=== PATIENT | male | born 1970 | race Caucasian/White ===

== ENCOUNTER 2016-05-14 16:55 | Observation (INO) | payer SELFPAY ==
[~2016-05-14] VITALS: Ht 180.3 cm; Wt 125.0 kg
[~2016-05-14 16:55] MED LIST: ATOR10 PO; ECASA PO; LISI5 PO
[2016-05-14 16:56] VITALS: BP 158/96; PULSE 78; RESP 20; TEMP 97.8; O2SAT 96
[2016-05-14] MEDS ORDERED: SODIUM CHLORIDE 0.9% FLUSH 5 ML FLUSH IVF PRN ×2 (17:45→19:30)
--- NOTE | 2016-05-14 17:50 | PD ---
HPI Chief Complaint: Chest Pain Time Seen by Provider: 17:16 Travel History International Travel<30 days: No Contact w/Intl Traveler<30days: No Traveled to known affect area: No History of Present Illness HPI 45yo M with PMH of HTN, HLD, CVA, paroxysmal afib (has a recorder since CVA 2 years ago and only showed one episode of afib) presents to the ED for chest pain since this morning. States it is pressure like and radiates to bilateral axilla. Associated with mild sob. Denies any fever, cough, n/v, abdominal pain , focal weakness or numbness. Pt took his aspirin 325mg PO today. Pt had seen Dr. Fu a while ago but has not follow up in more than a year. Has never had chest pain or cardiac work up. Former cig smoker. PFSH Past Medical History Atrial Fibrillation: Yes Cardiovascular Problems: Yes High Cholesterol: Yes Chest Pain: Yes Cerebrovascular Accident: Yes (2014) Diminished Hearing: No Hypertension: Yes Past Surgical History Abdominal Surgery: Yes (HERNIA ) Body Medical Devices: IMPLANTED HEART MONITOR Genitourinary Surgery: Yes (VASECTOMY ) Gynecologic Surgery: Yes Family History Family Myocardial Infarction: Yes Social History Alcohol Use: No Tobacco Use: No Substance Use: No Allergies-Medications (Allergen,Severity, Reaction): Coded Allergies: Penicillin (Unverified Allergy, Unknown, 05/14/16) Reported Meds & Prescriptions Reported Meds & Active Scripts Active Prinivil 5 mg (Lisinopril) 5 Mg Tab 2.5 Mg PO DAILY Lipitor 10 mg tab (Atorvastatin) 10 Mg Tab 10 Mg PO DAILY Aspirin EC (Aspirin) 325 Mg Tabec 325 Mg PO DAILY Review of Systems Except as stated in HPI: all other systems reviewed are Neg Physical Exam Narrative GENERAL: 45yo M not in distress. SKIN: Warm and dry. HEAD: Atraumatic. Normocephalic. EYES: Pupils equal and round. EOMI> No scleral icterus. No injection or drainage. ENT: No nasal bleeding or discharge. Mucous membranes pink and moist. NECK: Trachea midline. No JVD. CARDIOVASCULAR: Regular rate and rhythm. No murmur appreciated. RESPIRATORY: No accessory muscle use. Clear to auscultation. Breath sounds equal bilaterally. GASTROINTESTINAL: Abdomen soft, non-tender, nondistended. No rebound tenderness or guarding. MUSCULOSKELETAL: No obvious deformities. No clubbing. No cyanosis. No edema. NEUROLOGICAL: Awake and alert. No obvious cranial nerve deficits. Motor grossly within normal limits. Normal speech. PSYCHIATRIC: Appropriate mood and affect; insight and judgment normal. Data Data Last Documented VS Vital Signs Date Time Temp Pulse Resp B/P Pulse Ox O2 Delivery O2 Flow Rate FiO2 05/14/16 18:54 95 124/73 05/14/16 18:01 20 95 Room Air 05/14/16 16:56 97.8 Orders Electrocardiogram (05/14/16 ) Basic Metabolic Panel (Bmp) (05/14/16 17:39) Ckmb (Isoenzyme) Profile (05/14/16 17:39) Complete Blood Count With Diff (05/14/16 17:39) Magnesium (Mg) (05/14/16 17:39) Prothrombin Time / Inr (Pt) (05/14/16 17:39) Act Partial Throm Time (Ptt) (05/14/16 17:39) Troponin I (05/14/16 17:39) Chest, Single Ap (05/14/16 17:39) Ecg Monitoring (05/14/16 17:39) Bilateral Bp Monitoring (05/14/16 17:39) Iv Access Insert/Monitor (05/14/16 17:39) Oximetry (05/14/16 17:39) Oxygen Administration (05/14/16 17:39) Sodium Chloride 0.9% Flush (Ns Flush) (05/14/16 17:45) Nitroglycerin Sl (Nitrostat Sl) (05/14/16 17:45) CKMB (05/14/16 17:45) CKMB% (05/14/16 17:45) Admit Order (Ed Use Only) (05/14/16 19:19) Labs Laboratory Tests Test 05/14/16 17:45 White Blood Count 8.0 TH/MM3 Red Blood Count 4.57 MIL/MM3 Hemoglobin 13.8 GM/DL Hematocrit 39.8 % Mean Corpuscular Volume 87.0 FL Mean Corpuscular Hemoglobin 30.2 PG Mean Corpuscular Hemoglobin 34.7 % Concent Red Cell Distribution Width 13.2 % Platelet Count 236 TH/MM3 Mean Platelet Volume 7.4 FL Neutrophils (%) (Auto) 55.8 % Lymphocytes (%) (Auto) 33.9 % Monocytes (%) (Auto) 7.1 % Eosinophils (%) (Auto) 2.1 % Basophils (%) (Auto) 1.1 % Neutrophils # (Auto) 4.5 TH/MM3 Lymphocytes # (Auto) 2.7 TH/MM3 Monocytes # (Auto) 0.6 TH/MM3 Eosinophils # (Auto) 0.2 TH/MM3 Basophils # (Auto) 0.1 TH/MM3 CBC Comment DIFF FINAL Differential Comment Prothrombin Time 11.0 SEC Prothromb Time International 1.0 RATIO Ratio Activated Partial 23.8 SEC Thromboplast Time Sodium Level 140 MEQ/L Potassium Level 3.8 MEQ/L Chloride Level 105 MEQ/L Carbon Dioxide Level 26.0 MEQ/L Anion Gap 9 MEQ/L Blood Urea Nitrogen 15 MG/DL Creatinine 1.21 MG/DL Estimat Glomerular Filtration 65 ML/MIN Rate Random Glucose 96 MG/DL Calcium Level 9.6 MG/DL Magnesium Level 2.0 MG/DL Total Creatine Kinase 477 U/L Creatine Kinase MB 1.4 NG/ML Creatine Kinase MB % 0.3 % Troponin I LESS THAN 0.02 NG/ML MDM Medical Decision Making Medical Screen Exam Complete: Yes Emergency Medical Condition: Yes Interpretation(s) EKG: NSR 71bpm. LAD. TWI III. No ST segment elevation or depression. Differential Diagnosis ACS vs. musculoskeletal pain vs. GERD Narrative Course 45yo M with multiple cardiac risk factors including HTN, HLD, obesity, former smoker here with chest pain that is pressure like since this morning. Atypical presentation but will do cardiac work up given pt's risk factors. Labs reviewed, no leukocytosis. Troponin negative. CXR showed minimal basal atelectasis or scarring. No acute findings. Pt given aspirin and sublingual nitro with some improvement of chest pain. Will admit pt for chest pain center for serial EKG and cardiac enzymes. Diagnosis Primary Impression: Chest pain Qualified Code: R07.9 - Chest pain, unspecified type Admitting Information Admitting Physician Requests: Elodia Ramon DO May 14, 2016 17:50
[2016-05-14] MEDS: NITROGLYCERIN 0.4 MG SL 25 TABS/BTL SL SCH ×3 (17:53→18:54)
[2016-05-14 18:01] VITALS: BP 125/85; PULSE 97; RESP 20; O2SAT 95
[2016-05-14 18:25] LABS: AUTOMATED NEUTROPHIL # 4.5 TH/MM3 (1.8-7.7); BASOPHIL # 0.1 TH/MM3 (0-0.2); BASOPHIL % 1.1 % (0.0-2.0); EOSINOPHIL # 0.2 TH/MM3 (0-0.4); EOSINOPHIL % 2.1 % (0.0-4.0); HEMATOCRIT 39.8 % (39.0-51.0); HEMO FLAGS DIFF FINAL; LYMPH % 33.9 % (9.0-44.0); LYMPHOCYTE # 2.7 TH/MM3 (1.0-4.8); MEAN CORPUSCULAR HEMOGLOBIN 30.2 PG (27.0-34.0); MEAN CORPUSCULAR HGB CONC 34.7 % (32.0-36.0); MONO % 7.1 % (0.0-8.0); NEUT % 55.8 % (16.0-70.0); PLATELET COUNT 236 TH/MM3 (150-450); RED BLOOD COUNT 4.57 MIL/MM3 (4.50-5.90); RED CELL DISTRIBUTION WIDTH 13.2 % (11.6-17.2)
[2016-05-14 18:39] LABS: APTT (PATIENT) 23.8 SEC (24.3-30.1)
[2016-05-14 18:42] LABS: ANION GAP 9 MEQ/L (5-15); BLOOD UREA NITROGEN 15 MG/DL (7-18); CHLORIDE 105 MEQ/L (98-107); GLOMERULAR FILTRATION RATE 65 ML/MIN (>89); POTASSIUM 3.8 MEQ/L (3.5-5.1); SODIUM (NA) 140 MEQ/L (136-145)
[2016-05-14 18:43] LABS: CREATINE KINASE 477 U/L (39-308)
[2016-05-14 18:54] VITALS: BP 124/73; PULSE 95
[2016-05-14 18:55] LABS: CKMB 1.4 NG/ML (0.5-3.6)
--- NOTE | 2016-05-14 19:18 | RADRPT ---
EXAM DATE/TIME: 05/14/2016 17:39 [facility] COMPARISON: CHEST SINGLE AP, September 15, 2014, 11:26. INDICATIONS : Chest pain. Short of breath. MEDICAL HISTORY : None. SURGICAL HISTORY : None. ENCOUNTER: Initial ACUITY: 1 day PAIN SCORE: 6/10 LOCATION: Bilateral chest FINDINGS: A single view of the chest demonstrates the lungs to be symmetrically aerated without evidence of mas s, infiltrate or effusion. Minimal basal atelectasis or scarring. Recorder projects over lower left c hest. CONCLUSION: 1. Minimal basal atelectasis or scarring. No acute findings compared with 2014. José Antonio Longoria MD on May 14, 2016 at 19:15 Board Certified Radiologist. This report was verified electronically.
[2016-05-14 20:42] VITALS: BP 128/78; PULSE 62; RESP 20; O2SAT 96
[2016-05-14 21:04] LABS: CREATINE KINASE 425 U/L (39-308)
[2016-05-14 21:16] LABS: CKMB 0.9 NG/ML (0.5-3.6)
[2016-05-14] MEDS ORDERED: ATOR40TA16 PO (21:34)
[2016-05-14] MEDS ORDERED: LISI30TA4 PO (21:34)
[2016-05-14] MEDS ORDERED: ASPI325T PO (21:34)
[2016-05-14] MEDS ORDERED: NAPR250T PO (21:34)
[2016-05-14 22:34] VITALS: BP 123/73; PULSE 72; RESP 19; TEMP 98.2; O2SAT 96
[2016-05-14] MEDS: SODIUM CHLORIDE 0.9% FLUSH 5 ML FLUSH IVF SCH (22:55)
[2016-05-15] VITALS: PULSE 65
[2016-05-15 00:59] LABS: CREATINE KINASE 370 U/L (39-308)
[2016-05-15 01:11] LABS: CKMB 0.6 NG/ML (0.5-3.6)
[2016-05-15 04:00] VITALS: PULSE 65
[2016-05-15 04:14] VITALS: BP 118/81; PULSE 68; RESP 20; TEMP 98.4; O2SAT 97
[2016-05-15 07:13] VITALS: PULSE 63
[2016-05-15] MEDS: SODIUM CHLORIDE 0.9% FLUSH 5 ML FLUSH IVF SCH (08:20)
[2016-05-15 08:43] VITALS: BP 154/92; PULSE 67; RESP 20; O2SAT 97
[2016-05-15 09:28] VITALS: O2SAT 97
[2016-05-15] MEDS ORDERED: NITROGLYCERIN 0.4 MG SL 25 TABS/BTL SL PRN (09:30)
[2016-05-15] MEDS ORDERED: LISINOPRIL 20 MG TAB PO SCH (09:30)
[2016-05-15] MEDS ORDERED: ASPIRIN 325 MG TAB PO SCH (09:30)
[2016-05-15] MEDS ORDERED: ACETAMINOPHEN 500 MG CPLT PO PRN (09:30)
[2016-05-15] MEDS ORDERED: ONDANSETRON HCL 4 MG/2 ML VIAL IV PRN (09:30)
--- NOTE | 2016-05-15 11:49 | HHI.DCPOC ---
Discharge Care Plan Diagnosis: (1) Atypical chest pain Goals to Promote Your Health * To prevent worsening of your condition and complications * To maintain your health at the optimal level Directions to Meet Your Goals Take your medications as prescribed Follow your dietary instruction Follow activity as directed Keep your appointments as scheduled Take your immunizations and boosters as scheduled If your symptoms worsen call your PCP, if no PCP go to Urgent Care Center or Emergency Room Smoking is Dangerous to Your Health. Avoid second hand smoke Call the 24-hour hour crisis hotline for domestic abuse at Melonie Main May 15, 2016 11:49
--- NOTE | 2016-05-15 11:50 | TR ---
Date Performed: 05/15/2016 Time Performed: 10:15:30 DOCTOR: Bobby Giordano DRUG LIST: CLINICAL HISTORY: CHEST PAIN REASON FOR TEST: Chest pain REASON FOR ENDING: OBSERVATION: CONCLUSION: Rafy protocol completed. Stopped sec to leg fatigue and reaching target heart rate. Maximum ZE=541 Target HR Achieved=86.0% Maximum JH=142/92 Total Exercise Time=8:00. No reprod chest discomfort. No ectopy. No st t seg changes to sugg ischemia. Normal bp response. Good exercise tolera nce. Recovery quick and unremarkable. COMMENTS: Conclusion: Normal treadmill exercise. No evidence of ischemia.
[2016-05-15] MEDS ORDERED: HYDR12.57 PO (12:11)
--- NOTE | 2016-05-15 14:40 | EKG ---
Date Performed: 05/14/2016 Time Performed: 23:57:47 PTAGE: 45 years EKG: Sinus rhythm NORMAL ECG PREVIOUS TRACING : 05/14/2016 20.30 Since previous tracing, no significant change noted DOCTOR: Bobby Giordano Interpretating Date/Time 05/15/2016 14:39:26
--- NOTE | 2016-05-15 14:43 | EKG ---
Date Performed: 05/14/2016 Time Performed: 20:30:34 PTAGE: 45 years EKG: Sinus rhythm MODERATE VOLTAGE CRITERIA FOR LVH, CONSIDER NORMAL VARIANT BORDERLINE ECG PREVIOUS TRACING : 05/14/2016 17.22 Since previous tracing, no significant change noted DOCTOR: Bobby Giordano Interpretating Date/Time 05/15/2016 14:41:44
--- NOTE | 2016-05-15 14:43 | EKG ---
Date Performed: 05/14/2016 Time Performed: 17:22:08 PTAGE: 45 years EKG: Sinus rhythm POSSIBLE LEFT VENTRICULAR HYPERTROPHY ABNORMAL ECG PREVIOUS TRACING : 09/15/2014 11.09 Since previous tracing, no significant change noted DOCTOR: Bobby Giordano Interpretating Date/Time 05/15/2016 14:41:58
--- NOTE | 2016-05-15 17:05 | HHI.HP ---
HPI Primary Care Physician Lowell Pendleton MD Chief Complaint Chest pressure History of Present Illness 45-year-old male with known hypertension, hyperlipidemia, CVA presents to the emergency room for further evaluation of chest pressure. Onset yesterday morning upon awakening. Characterized as chest pressure, severity 1/10, radiated to his back. Duration constant. No associated symptoms. Chest pressure was not made worse with a deep breath, position, or movement. No nausea, vomiting, or diaphoresis. No known precipitating factors or relieving factors. Review of Systems General: Upper respiratory infection x3 days sat, mon, and monday of this week. Symptoms have improved. No fatigue,weakness, fever, chills, recent travel, or change in appetite HEENT: No MADRID, no vision changes, no nasal congestion or drainage, no dysphasia CV: No current chest pressure. Chest pressure resolved at 2200 last night . No CP, palpitations, intermittent leg pain, dizziness RESP: No SOB, cough, wheeze, hemoptysis GI: No nausea or vomiting, bowel changes, diarrhea, constipation, pain, distention, melena, blood in the stool. No change in appetite, no unintentional weight gain or weight loss : No dysuria, urgency, frequency, hematuria, or history of kidney stones EXT: No lower leg edema, no parathesias MS: No discomfort or change in ROM NEURO: No change in memory, dizziness, difficulty with balance, LOC, motor/ sensory deficits PSYCH: No anxiety, depression. Report situational stress from work and daily life stressors. SKIN: No rashes, no concerning lesions Past Family Social History Allergies: Coded Allergies: Penicillin (Unverified Allergy, Unknown, 05/14/16) Past Medical History Hypertension, hyperlipidemia, obesity, and CVA in 2014. Reason for CVA was never detected, although suspected to be from paroxysmal A. fib. Past Surgical History Vasectomy, abdominal hernia repair age 18, loop recorder placed 2014 Past cardiac testing Has never had a cardiac stress test. Follow-up with Dr. Fu after his CVA. Has not seen him in over one year. 09/2014 carotid ultrasoundunremarkable Holterunremarkable 09/2014 TEEtrace mitral regurg, trace tricuspid regurg, no thrombus or emboli with preserved LVF Reported Medications Reported Atorvastatin (Atorvastatin Calcium) 40 Mg Tab 40 Mg PO HS Naproxen 250 Mg Tab 440 Mg PO BID Aspirin 325 Mg Tab 325 Mg PO DAILY Lisinopril 30 Mg Tab 30 Mg PO DAILY Family History Family history is noncontributory for any early onset cardiovascular disease. 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 He smoked for 1 year and quit smoking 15 years ago. Quit drinking alcohol 6 months ago. Denies any illegal drug use Has known hypertension and hyperlipidemia. No known diabetes states he walks daily approximately 4-5 miles. Would like to increase his activity although somewhat anxious since CVA 2014. Physical Exam Vital Signs Vital Signs Date Time Temp Pulse Resp B/P Pulse Ox O2 Delivery O2 Flow Rate FiO2 05/15/16 09:28 97 21 05/15/16 08:43 67 20 154/92 97 05/15/16 07:13 63 05/15/16 04:14 98.4 68 20 118/81 97 05/15/16 04:00 65 05/15/16 00:00 65 05/14/16 22:34 98.2 72 19 123/73 96 05/14/16 20:42 62 20 128/78 96 Room Air 05/14/16 18:54 95 124/73 05/14/16 18:01 97 20 125/85 95 Room Air 05/14/16 17:24 78 20 98 Room Air 05/14/16 16:56 97.8 78 20 158/96 96 Room Air Physical Exam GENERAL: Alert WN, WD, NAD, obese pleasant, male HEAD: NC, AT EYES: Sclera clear, conjunctiva without injection, pupils equal and round ENT: Mucous membranes pink and moist NECK: Supple, no masses, trachea midline CV: RRR, without murmur, rub, gallop, no JVD, S1-S2 no S3-S4. No carotid or femoral bruits RESP: Clear lungs throughout bilateral, no crackles, wheeze, rhonchi, symmetrical chest rise, nonlabored, able to speak in full sentences ABD: Soft, obese, NT, ND, no masses, positive bowel tones BACK: No CVAT, no scoliosis EXT: Pulses +24, no dependent edema MS: Normal tone 4 extremities, nontender, no obvious deformities, full range of motion NEURO: CN II through CN XII grossly intact, motor strength 5/5, gait WNL PSYCH: A+O 3, pleasant affect, appropriate speech, appropriate mood and affect , insight and judgment SKIN: Normal turgor, normal texture, no lesions, no rashes, brisk cap refill, even hair distribution Laboratory Laboratory Tests Test 05/14/16 05/14/16 05/15/16 17:45 20:25 00:20 White Blood Count 8.0 Red Blood Count 4.57 Hemoglobin 13.8 Hematocrit 39.8 Mean Corpuscular Volume 87.0 Mean Corpuscular Hemoglobin 30.2 Mean Corpuscular Hemoglobin 34.7 Concent Red Cell Distribution Width 13.2 Platelet Count 236 Mean Platelet Volume 7.4 Neutrophils (%) (Auto) 55.8 Lymphocytes (%) (Auto) 33.9 Monocytes (%) (Auto) 7.1 Eosinophils (%) (Auto) 2.1 Basophils (%) (Auto) 1.1 Neutrophils # (Auto) 4.5 Lymphocytes # (Auto) 2.7 Monocytes # (Auto) 0.6 Eosinophils # (Auto) 0.2 Basophils # (Auto) 0.1 CBC Comment DIFF FINAL Differential Comment Prothrombin Time 11.0 Prothromb Time International 1.0 Ratio Activated Partial 23.8 Thromboplast Time Sodium Level 140 Potassium Level 3.8 Chloride Level 105 Carbon Dioxide Level 26.0 Anion Gap 9 Blood Urea Nitrogen 15 Creatinine 1.21 Estimat Glomerular Filtration 65 Rate Random Glucose 96 Calcium Level 9.6 Magnesium Level 2.0 Total Creatine Kinase 477 425 370 Creatine Kinase MB 1.4 0.9 0.6 Creatine Kinase MB % 0.3 0.2 0.2 Troponin I LESS THAN 0.02 LESS THAN 0.02 LESS THAN 0.02 Result Diagram: 05/14/16 [id number]/161744 Imaging Last Impressions Chest X-Ray 05/14/161738 Signed Impressions: Service Date/Time: Saturday, May 14, 2016 17:39 - CONCLUSION: 1. Minimal basal atelectasis or scarring. No acute findings compared with 2015. José Antonio Longoria MD Course EKGs 3 EKGs show normal sinus rhythm with no ST or T-segment changes, normal axis. Assessment and Plan Assessment and Plan #1 Chest painpatient admitted to the chest pain center. Was ruled out with 3 sets of EKGs, cardiac enzymes, and monitored overnight. He was seen and evaluated by Dr. Bobby Giordano. Completed an exercise stress test. Treadmill test unremarkable and negative for ischemia. He reassured he increase his activity level. Educated on benefits of daily exercise and weight loss. #2 Hypertensionin addition to his lisinopril will add HCTZ 12.5 mg daily. Encourage blood pressure checks weekly and take blood pressure log to next primary care appointment. Melonie Main May 15, 2016 17:05
== END 2016-05-15 15:07 | disposition home or self-care (01) ==
LOC: NEPA 16:55 → NEDA 19:21 → NEPHCDU 21:57
DX: R07.9 Chest pain, unspecified (principal); I10 Essential (primary) hypertension; I48.0 Paroxysmal atrial fibrillation; E78.5 Hyperlipidemia, unspecified; R94.31 Abnormal electrocardiogram [ECG] [EKG]; E66.9 Obesity, unspecified; E78.00 Pure hypercholesterolemia, unspecified; J98.11 Atelectasis; Z86.73 Personal history of transient ischemic attack (TIA), and cerebral infarction without residual deficits; Z87.891 Personal history of nicotine dependence; Z68.38 Body mass index [BMI] 38.0-38.9, adult
CPT/HCPCS: 71010; 80048; 82550; 82552; 83735; 84484; 85025; 85610; 85730; 93005; 93017; 99285; G0378